=== PATIENT | male | born 1980 | race Caucasian/White ===

== ENCOUNTER 2017-04-20 11:24 | Emergency (ER) | payer BC ==
[~2017-04-20] VITALS: Ht 182.9 cm; Wt 108.0 kg
[2017-04-20] MEDS ORDERED: PHEN100T90 PO (12:04)
[2017-04-20] MEDS ORDERED: SULF1TAB24 PO (12:04)
[2017-04-20] MEDS ORDERED: SODIUM CHLORIDE FLUSH 10ML SYR IVF ONE (12:30)
[2017-04-20] MEDS ORDERED: MORPHINE SULFATE 4 MG/ML, 1ML IVPush PRN (12:30)
[2017-04-20] MEDS ORDERED: ONDANSETRON 2MG/ML, 2ML IVPush ONE (12:30)
[2017-04-20] MEDS ORDERED: SODIUM CHLORIDE 0.9% 1,000ML IV ONE (12:30)
[2017-04-20 12:31] LABS: PATH.CAST-FLAG NOT PRESENT; SPERM-FLAG NOT PRESENT; SRC-FLAG NOT PRESENT; XTAL-FLAG NOT PRESENT; YLC-FLAG NOT PRESENT
[2017-04-20] MEDS ORDERED: MORPHINE SULFATE 4 MG/ML, 1ML ONE (12:33)
[2017-04-20] MEDS ORDERED: ONDANSETRON 2MG/ML, 2ML ONE (12:34)
[2017-04-20 13:00] LABS: ASPARTATE AMINO TRANSFERASE 22 U/L (15-37); BLOOD UREA NITROGEN 11 mg/dL (7-18)
[2017-04-20] MEDS ORDERED: CEFTRIAXONE PMX 1GM/50ML 50 ML ONE (13:58)
[2017-04-20] MEDS ORDERED: CEFTRIAXONE PMX 2GM/50ML 50 ML IV ONE (14:00)
[2017-04-20] MEDS ORDERED: CEFTRIAXONE PMX 2GM/50ML 50 ML ONE (14:04)
[2017-04-20] MEDS ORDERED: ACETAMINOPHEN 325 MG TABLET ONE (14:12)
[2017-04-20] MEDS ORDERED: ACETAMINOPHEN 325 MG TABLET PO ONE (14:30)
[2017-04-20 15:20] VITALS: BP 120/82
== END 2017-04-20 15:23 | disposition home or self-care (01) ==
LOC: ED 15:17
DX: N10 Acute pyelonephritis (principal)
CPT/HCPCS: 36415; 80053; 81001; 83605; 84145; 85025; 87040; 87086; 96361; 96365; 96375; 99284; J0696; J2405; J7030

== ENCOUNTER 2019-04-12 08:16 | Emergency (ER) | payer BC ==
[~2019-04-12] VITALS: Ht 182.9 cm; Wt 121.1 kg
[~2019-04-12 08:16] MED LIST: PHEN100T90 PO; SULF1TAB24 PO
[2019-04-12] MEDS ORDERED: ONDANSETRON ODT 4 MG ONE (08:54)
[2019-04-12] MEDS ORDERED: HYDROmorphone 2 MG/ML, 1ML ONE (08:55)
[2019-04-12] MEDS ORDERED: HYDROmorphone 2 MG/ML, 1ML IM ONE (09:00)
[2019-04-12] MEDS ORDERED: ONDANSETRON ODT 4 MG PO ONE (09:00)
--- NOTE | 2019-04-12 09:06 | NUR ---
Pt assessed, c/o L back pain now mid back. Denies N/V. Possible fever this am. Hx kidney stones. Pt medicated as ordered. Labs and urine sent. To CT
[2019-04-12 09:16] LABS: BASOPHILS # (AUTO) 0.05 x10^3/uL (0-0.1); BASOPHILS % (AUTO) 1 % (0-1); EOSINOPHILS # (AUTO) 0.26 x10^3/uL (0-0.4); EOSINOPHILS % (AUTO) 3 % (1-7); LYMPHOCYTES # (AUTO) 2.04 x10^3/uL (1-3.4); LYMPHOCYTES % (AUTO) 25 % (22-44); MD NO; MEAN CORPUSCULAR HEMOGLOBIN 30.7 pg (27.5-34.5); MEAN CORPUSCULAR HGB CONC 33.6 g/dL (33.2-36.2); MEAN CORPUSCULAR VOLUME 91.3 fL (81-97); MEAN PLATELET VOLUME 7.2 fL (7.4-10.4); MONOCYTES # (AUTO) 0.39 x10^3/uL (0.2-0.8); MONOCYTES % (AUTO) 5 % (2-9); NEUTROPHILS # (AUTO) 5.33 x10^3/uL (1.8-6.8); NEUTROPHILS % (AUTO) 66 % (42-75); PLATELET COUNT 261 x10^3/uL (130-400); RED CELL DISTRIBUTION WIDTH 13.7 % (9.4-14.8)
[2019-04-12 09:27] LABS: ALANINE AMINOTRANSFERASE 28 U/L (12-78); ALBUMIN 3.9 g/dL (3.4-5.0); ANION GAP 5 mmol/L (5-15); CALCIUM 9.1 mg/dL (8.5-10.1); CHLORIDE 108 mmol/L (98-107); CREATININE 1.09 mg/dL (0.7-1.3)
[2019-04-12 09:29] LABS: ALKALINE PHOSPHATASE 57 U/L (45-117); BILIRUBIN,TOTAL 0.3 mg/dL (0.2-1.0); TOTAL PROTEIN 6.7 g/dL (6.4-8.2)
[2019-04-12 09:44] LABS: MICROSCOPIC NOT IND
--- NOTE | 2019-04-12 09:52 | NUR ---
TASK RN: PT RESTING IN ROOM WITH FAMILY AT BS. VSS. NO NEEDS EXPRESSED. AWAITING LAB RESUTLS AT THIS TIME.
[2019-04-12 09:55] LABS: CULTURE INDICATED? NO
[2019-04-12 10:46] VITALS: BP 138/77
== END 2019-04-12 11:03 | disposition home or self-care (01) ==
LOC: ED 10:54
DX: M54.5 Low back pain (principal); Z88.5 Allergy status to narcotic agent
CPT/HCPCS: 36415; 74176; 80053; 81003; 85025; 96372; 99284; J1170; Q0162

== ENCOUNTER 2019-09-23 11:54 | Emergency (ER) | payer BC ==
[~2019-09-23] VITALS: Ht 182.9 cm; Wt 125.0 kg
[2019-09-23] MEDS ORDERED: SODIUM CHLORIDE FLUSH 10ML SYR IVF ONE (13:00)
[2019-09-23] MEDS ORDERED: ONDANSETRON 2MG/ML, 2ML IVPush ONE (13:00)
[2019-09-23] MEDS ORDERED: HYDROmorphone 2 MG/ML, 1ML IVPush PRN (13:00)
[2019-09-23] MEDS ORDERED: HYDROmorphone 1 MG/ML, 1ML VIAL ONE (13:01)
[2019-09-23] MEDS ORDERED: ONDANSETRON 2MG/ML, 2ML ONE (13:01)
--- NOTE | 2019-09-23 13:32 | NUR ---
IV STARTED IN LEFT INNER WRIST. MEDICATED PER DEC. PT PROVIDED WITH WATER PER REQUEST. TO CT AT THIS TIME.
[2019-09-23 13:33] VITALS: BP 138/71
[2019-09-23] MEDS ORDERED: DIAZEPAM 5 MG TABLET PO ONE (14:30)
[2019-09-23] MEDS ORDERED: KETOROLAC 30 MG/1 ML IVPush ONE (14:30)
[2019-09-23] MEDS ORDERED: DIAZEPAM 5 MG TABLET ONE (14:42)
[2019-09-23] MEDS ORDERED: KETOROLAC 30 MG/1 ML ONE (14:42)
== END 2019-09-23 14:49 | disposition home or self-care (01) ==
LOC: ED 14:35
DX: S33.5XXA Sprain of ligaments of lumbar spine, initial encounter (principal); W18.30XA Fall on same level, unspecified, initial encounter; Y93.01 Activity, walking, marching and hiking; Y92.410 Unspecified street and highway as the place of occurrence of the external cause; Y99.8 Other external cause status
CPT/HCPCS: 72125; 72131; 96374; 96375; 99284; J1170; J1885; J2405

== ENCOUNTER 2020-06-26 10:05 | Emergency (ER) | payer BC ==
[~2020-06-26] VITALS: Ht 182.9 cm; Wt 138.4 kg
[2020-06-26 10:11] VITALS: BP 157/74
--- NOTE | 2020-06-26 10:32 | NUR ---
VALERIY AT BEDSIDE FOR ASSESSMENT. PT STATES WOKE UP WITH LT 3RD AND 4TH FINGER NUMBNESS, DENIES OTHER SYMPTOMS CURRENTLY. NEURO EXAM COMPLETED BY VALERIY. PER ERMD, PT THOUGHT TO HAVE PINCHED ULNAR NERVE, THIS DICUSSED WITH PT BY VALERIY. PT TO BE ER D/C WHEN PAPERWORK AVAILABLE. PT AWARE OF POC, VERBALIZES UNDERSTANDING.
== END 2020-06-26 10:59 | disposition home or self-care (01) ==
LOC: ED 10:38
DX: G56.22 Lesion of ulnar nerve, left upper limb (principal); R20.2 Paresthesia of skin; R41.0 Disorientation, unspecified; R94.31 Abnormal electrocardiogram [ECG] [EKG]
CPT/HCPCS: 93005; 99283